=== PATIENT | female | born 1950 | race Caucasian/White ===

== ENCOUNTER → 2017-04-25 | Outpatient (CLI) | payer MEDICARE | END | disposition home or self-care (01) | LOC: CFH 13:08 | PROVIDERS: ATTEND Nurse Practitioner | DX: R91.8 Other nonspecific abnormal finding of lung field (principal); I77.810 Thoracic aortic ectasia; K44.9 Diaphragmatic hernia without obstruction or gangrene | CPT/HCPCS: 71250 ==